=== PATIENT | female | born 1985 | race Caucasian/White ===

== ENCOUNTER 2020-05-24 14:07 | Outpatient (CLI) | payer BC ==
[2020-05-25 02:10] LABS: SARS-CoV-2 PCR by NAA Not Detected (NotDetected)
== END 2020-05-24 14:08 | disposition home or self-care (01) ==
LOC: CSHLAB 14:07
PROVIDERS: ATTEND Obstetrics & Gynecology
DX: Z20.822 Contact with and (suspected) exposure to COVID-19 (principal)
CPT/HCPCS: 87635; U0003; U0005

== ENCOUNTER 2020-05-28 10:41 | Inpatient (IN) | payer BC ==
[~2020-05-28 10:41] MED LIST: Bupivacaine 0.25% HCL 30 ML VIAL ONE; Terbutaline Sulfate 1 MG/ML VIAL ONE; ePHEDrine Sulfate 50 MG/10 ML VIAL ONE
[2020-05-28] MEDS ORDERED: Diphenoxylate HCl/Atropine Tablet PO PRN ×2 (11:01)
[2020-05-28] MEDS ORDERED: Ibuprofen 800 MG TAB PO PRN (11:01)
[2020-05-28] MEDS ORDERED: HYDROcodone/Acetaminophen 5/325 mg Tablet PO PRN ×2 (11:01)
[2020-05-28] MEDS ORDERED: Butorphanol Tartrate 1 MG/ML VIAL SLOW IVP PRN (11:01)
[2020-05-28] MEDS ORDERED: Lidocaine 1% (PF) 30 ML VIAL SC PRN (11:01)
[2020-05-28] MEDS ORDERED: Docusate 100 MG CAP PO PRN (11:01)
[2020-05-28] MEDS ORDERED: Misoprostol 200 MCG TAB PR PRN (11:01)
[2020-05-28] MEDS ORDERED: Acetaminophen 500 MG TAB PO PRN (11:01)
[2020-05-28] MEDS ORDERED: Promethazine HCl 25 MG/ML VIAL IM PRN ×2 (11:01→23:23)
[2020-05-28] MEDS ORDERED: hydrALAZINE 20 MG/ML VIAL SLOW IVP PRN (11:01)
[2020-05-28] MEDS ORDERED: Ondansetron PF 4 MG/2 ML Vial IVP PRN ×2 (11:01→23:23)
[2020-05-28 11:22] VITALS: BMI 33.3
[2020-05-28] MEDS ORDERED: NS w/ Oxytocin 30 units 500 ML IV PRN (11:28)
[2020-05-28 11:39] LABS: Hemoglobin 11.9 g/dL (12.0-15.5); Mean Corpuscular Hemoglobin 29.8 pg (27.0-33.0); Mean Corpuscular Volume 85.2 fl (81.6-98.3); Mean Platelet Volume 11.5 fl (7.4-10.4); Platelet Count 179 10x3/uL (150-450); RBC Distribution Width 13.3 % (11.5-14.5); Red Blood Cell (RBC) Count 3.99 10x6/uL (3.90-5.03); White Blood Cell (WBC) Count 7.8 10x3/uL (3.5-10.5)
[2020-05-28] MEDS ORDERED: NS w/ Oxytocin 30 units 500 ML IVPB SCH (11:45)
[2020-05-28] MEDS: NS w/ Oxytocin 30 units 500 ML IVPB SCH (11:54)
[2020-05-28] MEDS: Lactated Ringer's 1,000 ML IV SCH ×2 (11:55→23:36)
[2020-05-28 12:11] LABS: Hep B Surf Ag Non-Reactive S/CO (NonReactive); Syphilis Antibody Nonreactive (Nonreactive); Syphilis Antibody Index 0.02 S/CO (<1.00 Non-Reactive)
[2020-05-28 12:28] LABS: HBSAg Index 0.11 S/CO (0-0.99)
[2020-05-28] MEDS ORDERED: Misoprostol 100 MCG TAB ONE (17:45)
[2020-05-28] MEDS ORDERED: Misoprostol 100 MCG TAB VAG SCH (18:00)
[2020-05-28] MEDS: Misoprostol 100 MCG TAB VAG SCH (18:09)
[2020-05-28] MEDS ORDERED: Fentanyl 4 mcg/Bup 0.1% Cadd 100 ML ONE (22:41)
[2020-05-28] MEDS ORDERED: Lactated Ringer's 500 ML IV PRN (23:23)
[2020-05-28] MEDS ORDERED: ePHEDrine 50 MG/ML VIAL SLOW IVP PRN (23:23)
[2020-05-28] MEDS ORDERED: Eucerin (Mineral Oil/Petrolatum,White) 30 gm Jar TOP PRN (23:23)
[2020-05-28] MEDS ORDERED: diphenhydrAMINE 50 MG/ML VIAL IVP PRN (23:23)
[2020-05-28] MEDS ORDERED: Naloxone HCl 0.4 mg/ml Vial IVP PRN ×2 (23:23)
[2020-05-28] MEDS ORDERED: Acetaminophen 325 MG TAB PO PRN (23:23)
[2020-05-28] MEDS ORDERED: Fentanyl 4 mcg/Bupivacaine 0.1% Cassette 100 ML EPIDURAL SCH (23:30)
[2020-05-28] MEDS ORDERED: Communication Order-Pharmacy FS SCH (23:30)
[2020-05-29] MEDS: Lactated Ringer's 1,000 ML IV SCH ×2 (00:50→16:24)
[2020-05-29] MEDS: NS w/ Oxytocin 30 units 500 ML IVPB SCH (05:59)
[2020-05-29] MEDS: Misoprostol 100 MCG TAB VAG SCH ×3 (06:09→16:25)
[2020-05-29] MEDS ORDERED: Misoprostol 200 MCG TAB VAG PRN (13:10)
[2020-05-29] MEDS ORDERED: Lanolin Ointment 7 GM TUBE TOP PRN (13:10)
[2020-05-29] MEDS ORDERED: HYDROcodone/Acetaminophen 5/325 mg Tablet PO PRN ×2 (13:10)
[2020-05-29] MEDS ORDERED: Zolpidem Tartrate 5 MG TAB PO PRN (13:10)
[2020-05-29] MEDS ORDERED: Benzocaine-Menthol 82.5 ML CAN TOP PRN (13:10)
[2020-05-29] MEDS ORDERED: Adacel (T-DAP) 0.5 ML SYRINGE IM ONE (13:10)
[2020-05-29] MEDS ORDERED: hydrALAZINE 20 MG/ML VIAL SLOW IVP PRN (13:10)
[2020-05-29] MEDS ORDERED: diphenhydrAMINE 25 MG CAP PO PRN (13:10)
[2020-05-29] MEDS ORDERED: Milk Of Magnesia 30 ML UDCUP PO PRN (13:10)
[2020-05-29] MEDS ORDERED: Ondansetron PF 4 MG/2 ML Vial IVP PRN (13:10)
[2020-05-29] MEDS ORDERED: Bisacodyl 10 MG SUPP PR PRN (13:10)
[2020-05-29] MEDS ORDERED: Preparation H Ointment 28 GM TUBE PR PRN (13:10)
[2020-05-29] MEDS ORDERED: NS w/ Oxytocin 30 units 500 ML IV SCH (13:45)
[2020-05-29] MEDS: Ibuprofen 800 MG TAB PO SCH ×2 (16:24→17:05)
[2020-05-29] MEDS: Ferrous Sulfate 325 MG TAB PO SCH (17:19)
[2020-05-29] MEDS: Docusate Calcium (SURFAK) 240 MG CAP PO SCH (22:02)
[2020-05-30] MEDS: Ibuprofen 800 MG TAB PO SCH ×4 (00:09→21:31)
[2020-05-30 06:51] LABS: Hemoglobin 9.7 g/dL (12.0-15.5); Mean Corpuscular Hemoglobin 30.1 pg (27.0-33.0); Mean Corpuscular Volume 88.5 fl (81.6-98.3); Mean Platelet Volume 11.5 fl (7.4-10.4); Platelet Count 140 10x3/uL (150-450); RBC Distribution Width 13.5 % (11.5-14.5); Red Blood Cell (RBC) Count 3.22 10x6/uL (3.90-5.03); White Blood Cell (WBC) Count 12.1 10x3/uL (3.5-10.5)
[2020-05-30] MEDS: Prenatal Vitamin 1 TAB PO SCH (08:37)
[2020-05-30] MEDS: Ferrous Sulfate 325 MG TAB PO SCH ×2 (08:37→18:37)
[2020-05-30] MEDS: Docusate Calcium (SURFAK) 240 MG CAP PO SCH ×2 (08:37→21:31)
[2020-05-30] MEDS: HYDROcodone/Acetaminophen 5/325 mg Tablet PO PRN ×2 (15:42→20:28)
[2020-05-31] MEDS: Ibuprofen 800 MG TAB PO SCH (06:07)
[2020-05-31 09:03] VITALS: BP 135/74; TEMP 98
[2020-05-31] MEDS: Docusate Calcium (SURFAK) 240 MG CAP PO SCH (09:49)
[2020-05-31] MEDS: Ferrous Sulfate 325 MG TAB PO SCH (09:49)
[2020-05-31] MEDS: Prenatal Vitamin 1 TAB PO SCH (09:49)
== END 2020-05-31 13:40 | disposition home or self-care (01) | DRG 806 ==
LOC: CSHLD 10:41 → CSHPP 05-29 15:27
PROVIDERS: ADMIT Obstetrics & Gynecology; ATTEND Obstetrics & Gynecology
PROC: 10E0XZZ Delivery of Products of Conception, External Approach (ICD-10-PCS; principal; 2020-05-29)
PROC: 3E033VJ Introduction of Other Hormone into Peripheral Vein, Percutaneous Approach (ICD-10-PCS; 2020-05-29)
PROC: 0HQ9XZZ Repair Perineum Skin, External Approach (ICD-10-PCS; 2020-05-29)
PROC: 0UQMXZZ Repair Vulva, External Approach (ICD-10-PCS; 2020-05-29)
DX: O24.429 Gestational diabetes mellitus in childbirth, unspecified control (principal); D62 Acute posthemorrhagic anemia; O36.5930 Maternal care for other known or suspected poor fetal growth, third trimester, not applicable or unspecified; O90.81 Anemia of the puerperium; O71.82 Other specified trauma to perineum and vulva; O70.0 First degree perineal laceration during delivery; Z37.0 Single live birth; Z3A.39 39 weeks gestation of pregnancy; Z88.5 Allergy status to narcotic agent
CPT/HCPCS: 36415; 51702; 85027; 86780; 86850; 86900; 86901; 87340; 88307; J2001; J2405; J2550; J2590; J3105; S0020